=== PATIENT | female | born 1960 | race Caucasian/White ===

== ENCOUNTER 2017-10-05 06:10 | Day surgery (SDC) | payer BC ==
[~2017-10-05] VITALS: Ht 160 cm; Wt 71.6 kg
[2017-10-05] MEDS ORDERED: LACTATED RINGERS 1,000 ML IV SCH (06:33)
[2017-10-05] MEDS ORDERED: BUPIVACAINE/PF 0.5% ONE (06:35)
[2017-10-05] MEDS ORDERED: BACITRACIN 50,000 UNIT ONE (06:35)
[2017-10-05] MEDS ORDERED: AMLO1CAP15 PO (06:36)
[2017-10-05] MEDS ORDERED: HYDR50TA3 PO (06:36)
[2017-10-05 06:41] VITALS: BP 135/84
[2017-10-05] MEDS ORDERED: FENTANYL PF 100 MCG/2ML ONE (06:48)
[2017-10-05] MEDS ORDERED: MIDAZOLAM 1 MG/ML, 2ML ONE (06:48)
[2017-10-05] MEDS ORDERED: PROPOFOL 50 ML ONE (06:53)
[2017-10-05] MEDS ORDERED: LIDOCAINE 1%, 2ML SQ PRN (07:00)
[2017-10-05] MEDS ORDERED: ONDANSETRON 2MG/ML, 2ML ONE (07:09)
[2017-10-05] MEDS ORDERED: DEXAMETHASONE 4 MG/ML, 1ML ONE (07:09)
[2017-10-05] MEDS ORDERED: CEFAZOLIN 1,000 MG ONE (07:09)
[2017-10-05] MEDS ORDERED: KETOROLAC 30 MG/1 ML ONE (07:09)
[2017-10-05] MEDS ORDERED: HYDR-3237 PO (07:59)
[2017-10-05] MEDS ORDERED: MIDAZOLAM 1 MG/ML, 2ML IV PRN (08:00)
[2017-10-05] MEDS ORDERED: HYDROmorphone 1 MG/ML, 1ML IV PRN (08:00)
[2017-10-05] MEDS ORDERED: METOPROLOL 1 MG/ML, 5ML IV PRN (08:00)
[2017-10-05] MEDS ORDERED: EPHEDRINE 50 MG/ML, 1ML IVPush PRN (08:00)
[2017-10-05] MEDS ORDERED: PROMETHAZINE 25 MG/ML, 1ML IV PRN (08:00)
[2017-10-05] MEDS ORDERED: ONDANSETRON 2MG/ML, 2ML IVPush PRN (08:00)
[2017-10-05] MEDS ORDERED: hydrALAzine 20 MG/ML, 1ML IV PRN (08:00)
[2017-10-05] MEDS ORDERED: DIAZEPAM 5 MG/ML, 2ML IVPush PRN (08:00)
[2017-10-05] MEDS ORDERED: HYDROcodone/APAP 7.5-325MG/15ML UDC PO PRN (08:00)
[2017-10-05] MEDS ORDERED: ALBUTEROL SULFATE 2.5 MG/3 ML NPPB PRN (08:00)
[2017-10-05] MEDS ORDERED: OXYcodone 5 MG/5 ML ORAL.SOL UDC PO PRN (08:00)
[2017-10-05] MEDS ORDERED: FENTANYL PF 100 MCG/2ML IV PRN (08:00)
[2017-10-05] MEDS ORDERED: LABETALOL 5MG/ML, 20ML IV PRN (08:00)
[2017-10-05] MEDS ORDERED: ACETAMINOPHEN 325 MG TABLET PO PRN (08:00)
[2017-10-05] MEDS ORDERED: MEPERIDINE/PF 25MG/0.5ML IVPush PRN (08:00)
[2017-10-05] MEDS ORDERED: HYDROcodone/APAP 7.5-325MG/15ML UDC ONE (08:14)
== END 2017-10-05 09:00 | disposition home or self-care (01) ==
LOC: OUT 06:10
PROVIDERS: ATTEND Neurological Surgery
DX: G56.01 Carpal tunnel syndrome, right upper limb (principal); I10 Essential (primary) hypertension; F12.90 Cannabis use, unspecified, uncomplicated; F15.10 Other stimulant abuse, uncomplicated; Z88.8 Allergy status to other drugs, medicaments and biological substances; F17.210 Nicotine dependence, cigarettes, uncomplicated
CPT/HCPCS: 64721; J0690; J1100; J1885; J2250; J2405; J2704; J3010; J3490; J7120